=== PATIENT | male | born 1955 | race Hispanic/Latino ===

== ENCOUNTER 2018-05-06 16:10 | Observation (INO) | payer OTHER ==
[~2018-05-06] VITALS: Ht 170.2 cm; Wt 96.6 kg
[2018-05-06 16:39] LABS: BASOPHILS % (AUTO) 0.3 % (0.0-5.0); EOSINOPHILS % (AUTO) 0.2 % (0.0-8.0); HEMATOCRIT 40.9 % (42-54); LYMPHOCYTES % (AUTO) 10.3 % (21.0-51.0); MEAN CORPUSCULAR HEMOGLOBIN 30.6 pg (27.0-33.0); MEAN CORPUSCULAR HGB CONC 33.4 g/dL (32.0-36.0); MEAN CORPUSCULAR VOLUME 91.7 fL (79-99); MONOCYTES % (AUTO) 3.6 % (3.0-13.0); NEUTROPHILS % (AUTO) 85.6 % (40.0-77.0); PLATELET COUNT (AUTO) 265 K/uL (130-400); RED BLOOD CELL COUNT(AUTO) 4.46 MIL/uL (4.50-6.20); RED CELL DISTRIBUTION WIDTH 14.1 % (11.0-15.5); WHITE BLOOD COUNT (AUTO) 16.1 K/uL (4.8-10.8)
[2018-05-06 16:50] LABS: CREATININE 1.6 mg/dL (0.5-1.5)
[2018-05-06 16:53] LABS: INR 0.95 (0.85-1.15); PARTIAL THROMBOPLASTIN TIME 22.7 SEC (26.3-35.5)
[2018-05-06 16:55] LABS: ALBUMIN 3.7 g/dL (3.5-5.0); BILIRUBIN,TOTAL 0.3 mg/dL (0.2-1.0)
[2018-05-06] MEDS ORDERED: SODIUM CHLORIDE 0.9% 1000ML 1,000 ML IV ONE (17:20)
[2018-05-06 18:20] VITALS: BP 126/81
[2018-05-06] MEDS ORDERED: SODIUM CHLORIDE 0.9% 1000ML 1,000 ML IV SCH (19:09)
[2018-05-06] MEDS ORDERED: ONDANSETRON HCL 4 MG/2 ML VIAL IV PRN (19:15)
[2018-05-06] MEDS ORDERED: ACETAMINOPHEN 325 MG TAB PO PRN (19:15)
--- NOTE | 2018-05-06 20:20 | NUR ---
Admission note: Received report from Karla Becerra RN. Admitted pt. to floor per stretcher from ER. Pt. fully awake and responsive. AOx3. Placed in bed comfortably. Oriented to room and used of call lights. Policies and procedures explained. Pt. verbalized understanding. VS taken and recorded. Assessment done. Has an IV site to gauge #20 - intact and patency checked. Orders carried out. For GI consult in AM. Observed for any unusualities. Cared for and needs attended.
[2018-05-06 21:38] LABS: APPEARANCE,URINE Clear (CLEAR); BILIRUBIN,URINE Negative (NEGATIVE); COLOR,URINE Yellow (YELLOW); GLUCOSE, URINE (UA) Negative (NEGATIVE); KETONES,URINE Negative (NEGATIVE); LEUKOCYTE ESTERASE ,URINE Negative (NEGATIVE); NITRATE,URINE Negative (NEGATIVE); OCCULT BLOOD,URINE Negative (NEGATIVE); PH,URINE 5.5 (5.0-8.0); PROTEIN,URINE Negative (NEGATIVE); UROBILINOGEN,URINE 0.2 mg/dL (0.2-1.0)
[2018-05-07] VITALS: BP 133/87
[2018-05-07 04:18] VITALS: BP 112/80
[2018-05-07 05:57] LABS: BASOPHILS % (AUTO) 0.5 % (0.0-5.0); EOSINOPHILS % (AUTO) 1.2 % (0.0-8.0); HEMATOCRIT 32.7 % (42-54); LYMPHOCYTES % (AUTO) 20.2 % (21.0-51.0); MEAN CORPUSCULAR HEMOGLOBIN 30.3 pg (27.0-33.0); MEAN CORPUSCULAR HGB CONC 33.1 g/dL (32.0-36.0); MEAN CORPUSCULAR VOLUME 91.3 fL (79-99); MONOCYTES % (AUTO) 5.3 % (3.0-13.0); NEUTROPHILS % (AUTO) 72.8 % (40.0-77.0); PLATELET COUNT (AUTO) 199 K/uL (130-400); RED BLOOD CELL COUNT(AUTO) 3.58 MIL/uL (4.50-6.20); RED CELL DISTRIBUTION WIDTH 14.1 % (11.0-15.5); WHITE BLOOD COUNT (AUTO) 8.3 K/uL (4.8-10.8)
[2018-05-07 06:14] LABS: ALBUMIN 2.9 g/dL (3.5-5.0); BILIRUBIN,TOTAL 0.3 mg/dL (0.2-1.0); POTASSIUM 4.3 mmol/L (3.5-5.1); TOTAL PROTEIN, SERUM 5.6 g/dL (6.0-8.3)
[2018-05-07] MEDS ORDERED: PNEUMOCOCCAL VACCINE POLYVALENT 0.5 ML/VIAL [PPV] IM ONE (07:30)
[2018-05-07] MEDS ORDERED: PANTOPRAZOLE 40 MG/VIAL IVP SCH (09:00)
[2018-05-07 09:11] VITALS: BP 135/75
[2018-05-07] MEDS ORDERED: LOVA20TA3 PO (10:28)
[2018-05-07] MEDS ORDERED: ASPI-555 PO (10:28)
[2018-05-07] MEDS ORDERED: [UNRECOGNIZED DRUG - OTHER] PO (10:28)
[2018-05-07] MEDS ORDERED: BEDOYECTA PO (10:28)
[2018-05-07 12:33] VITALS: BP 118/79
--- NOTE | 2018-05-07 14:10 | NUR ---
CALL RECEIVED FROM DR. BENEDICT REGARDING CONSULT FOR RECTAL BLEEDING. PER DR. BENEDICT, NO INTERVENTION AT THIS TIME. PATIENT TO FOLLOW UP OUT PATIENT FOR COLONOSCOPY.
[2018-05-07 16:24] VITALS: BP 140/76
--- NOTE | 2018-05-07 19:05 | NUR ---
DISCHARGE PATIENT GIVEN DISCHARGE INSTRUCTIONS VIA TEACH BACK. NO RX GIVEN, PATIENT TO FOLLOW UP WITH PCP IN 1 WEEK FOR MANAGEMENT OF H&H AND ASPIRIN. NO ACTIVE BLEEDING AT THIS TIME. SON ( KEKE PRYOR ) IS A NURSE AND VOICED WILL FOLLOW UP WITH PHYSICIAN. 20G PIV TO LEFT HAND DISCONTINUED, TIP INTACT. PATIENT STABLE AT THIS TIME. SPOUSE AT BEDSIDE TO TRANSFER PATIENT HOME.
== END 2018-05-07 19:15 | disposition home or self-care (01) ==
LOC: EDH 16:10 → EDHIP 16:11 → UNDOADMOB 18:30 → 3CH 20:59
PROVIDERS: ADMIT Hospitalist; ATTEND Hospitalist
DX: K62.5 Hemorrhage of anus and rectum (principal); I10 Essential (primary) hypertension; E78.5 Hyperlipidemia, unspecified; F17.210 Nicotine dependence, cigarettes, uncomplicated
CPT/HCPCS: 36415 ×2; 80053 ×2; 81003; 84484; 85014; 85018; 85025 ×2; 85610; 85730; 86850; 86900; 86901; 93005; 96374; 99284; A4510; C9113; G0378 ×27; J7030

== ENCOUNTER 2020-05-27 02:44 | Observation (INO) | payer MEDICARE, OTHER ==
[~2020-05-27] VITALS: Ht 170.2 cm; Wt 92.4 kg
[~2020-05-27 02:44] MED LIST: BEDOYECTA PO; LOVA20TA3 PO; [UNRECOGNIZED DRUG - OTHER] PO
[2020-05-27 03:35] LABS: BASOPHILS % (AUTO) 0.4 % (0.0-5.0); EOSINOPHILS % (AUTO) 1.7 % (0.0-8.0); HEMATOCRIT 40.8 % (42-54); LYMPHOCYTES % (AUTO) 25.5 % (21.0-51.0); MEAN CORPUSCULAR HEMOGLOBIN 30.3 pg (27.0-33.0); MEAN CORPUSCULAR HGB CONC 33.1 g/dL (32.0-36.0); MEAN CORPUSCULAR VOLUME 91.5 fL (79-99); MONOCYTES % (AUTO) 6.3 % (3.0-13.0); NEUTROPHILS % (AUTO) 65.9 % (40.0-77.0); PLATELET COUNT (AUTO) 243 K/uL (130-400); RED BLOOD CELL COUNT(AUTO) 4.46 MIL/uL (4.50-6.20); RED CELL DISTRIBUTION WIDTH 13.5 % (11.0-15.5)
[2020-05-27 03:43] LABS: CREATININE 1.4 mg/dL (0.5-1.5); POTASSIUM 3.8 mmol/L (3.5-5.1)
[2020-05-27 03:47] LABS: ALBUMIN 3.8 g/dL (3.5-5.0); BILIRUBIN,TOTAL 0.3 mg/dL (0.2-1.0); TOTAL PROTEIN, SERUM 7.1 g/dL (6.0-8.3)
[2020-05-27 04:28] LABS: PROTHROMBIN TIME 10.9 SEC (9.6-11.6)
[2020-05-27] MEDS ORDERED: PANTOPRAZOLE 40 MG/VIAL ONE ×2 (04:28→19:44)
[2020-05-27] MEDS ORDERED: SODIUM CHLORIDE 0.9% 500ML 500 ML IV ONE (04:28)
[2020-05-27 04:30] LABS: PARTIAL THROMBOPLASTIN TIME 27.3 SEC (26.3-35.5)
[2020-05-27 04:52] LABS: BASOPHILS % (AUTO) 0.4 % (0.0-5.0); EOSINOPHILS % (AUTO) 1.4 % (0.0-8.0); HEMATOCRIT 39.8 % (42-54); LYMPHOCYTES % (AUTO) 25.9 % (21.0-51.0); MEAN CORPUSCULAR HEMOGLOBIN 30.6 pg (27.0-33.0); MEAN CORPUSCULAR HGB CONC 33.4 g/dL (32.0-36.0); MEAN CORPUSCULAR VOLUME 91.5 fL (79-99); MONOCYTES % (AUTO) 5.2 % (3.0-13.0); NEUTROPHILS % (AUTO) 66.7 % (40.0-77.0); PLATELET COUNT (AUTO) 254 K/uL (130-400); RED BLOOD CELL COUNT(AUTO) 4.35 MIL/uL (4.50-6.20); RED CELL DISTRIBUTION WIDTH 13.6 % (11.0-15.5); WHITE BLOOD COUNT (AUTO) 9.4 K/uL (4.8-10.8)
[2020-05-27] MEDS ORDERED: IOHEXOL 350 MG/ML 100ML INFUS..BTL IV ONE (05:02)
[2020-05-27] MEDS ORDERED: ONDANSETRON HCL 4 MG/2 ML VIAL IV PRN (07:00)
[2020-05-27] MEDS ORDERED: ACETAMINOPHEN 325 MG TAB PO PRN ×2 (07:00)
[2020-05-27] MEDS ORDERED: LACTATED RINGERS 1000ML 1,000 ML IV SCH (07:00)
[2020-05-27] MEDS ORDERED: LACTULOSE 20 GM/30 ML UDCUP PO PRN (07:00)
[2020-05-27] MEDS: FAMOTIDINE/PF 20 MG/2 ML VIAL IV SCH ×2 (09:00→21:00)
[2020-05-27] MEDS ORDERED: SODIUM CHLORIDE 0.9% 1000ML 1,000 ML IV ONE (09:13)
[2020-05-27] MEDS ORDERED: LACTATED RINGERS 1000ML 1,000 ML IV ONE (10:12)
[2020-05-27 11:08] LABS: HEMATOCRIT 35.1 % (42-54)
[2020-05-27 16:40] LABS: HEMATOCRIT 32.8 % (42-54)
[2020-05-27] MEDS ORDERED: PEG 3350/NA SULF,BICARB,CL/KCL 4000 ML SOLN PO SCH (17:00)
[2020-05-27 22:52] LABS: HEMATOCRIT 33.2 % (42-54)
[2020-05-28] VITALS (14 sets, daily range): BP systolic 93–143; BP diastolic 52–82
[2020-05-28] MEDS ORDERED: FOLI-74 PO (02:08)
[2020-05-28] MEDS ORDERED: ASPI-1443 PO (02:08)
[2020-05-28] MEDS ORDERED: ASCO500T92 PO (02:13)
[2020-05-28] MEDS ORDERED: PROPOFOL 10 MG/ML 20ML VIAL IV ONE ×3 (06:47→07:17)
[2020-05-28] MEDS ORDERED: LIDOCAINE HCL 1% 20 ML VIAL ONE (06:47)
[2020-05-28] MEDS ORDERED: SODIUM CHLORIDE 0.9% 1000ML 1,000 ML IV ONE (07:10)
[2020-05-28] MEDS ORDERED: PANT40TA PO (08:45)
[2020-05-28 08:54] LABS: HEMATOCRIT 30.1 % (42-54)
[2020-05-28] MEDS: FAMOTIDINE/PF 20 MG/2 ML VIAL IV SCH (09:15)
== END 2020-05-28 14:00 | disposition home or self-care (01) ==
LOC: EDH 02:44 → EDHIP 06:59 → 3AH 05-28 00:58
PROVIDERS: ADMIT Family Medicine; ATTEND Family Medicine
DX: K92.1 Melena (principal); K64.0 First degree hemorrhoids; K63.5 Polyp of colon; K57.30 Diverticulosis of large intestine without perforation or abscess without bleeding; D62 Acute posthemorrhagic anemia; E78.5 Hyperlipidemia, unspecified; K57.31 Diverticulosis of large intestine without perforation or abscess with bleeding; F17.210 Nicotine dependence, cigarettes, uncomplicated; Z79.899 Other long term (current) drug therapy
CPT/HCPCS: 36415 ×2; 45380; 74177; 80053; 85014 ×4; 85018 ×4; 85025 ×2; 85610; 85730; 86850; 86900; 86901; 86923; 88305; 96374; 99285; A4215; A4222; A4223; A4606; A4620; A4663; C9113 ×2; G0378 ×29; J2704 ×3; J3490; J7030 ×3; J7040; J7120; Q9967